=== PATIENT | female | born 1955 | race Caucasian/White ===

== ENCOUNTER → 2023-08-25 09:37 | Outpatient (REF) | payer OTHER, SELFPAY | LOC: RAD 09:37 | PROVIDERS: ATTENDING PHYSICIAN Physician Assistant; FAMILY PHYSICIAN Nurse Practitioner Adult Health | DX: Z78.0 Asymptomatic menopausal state (principal); E11.9 Type 2 diabetes mellitus without complications | CPT/HCPCS: 77080 ==

== ENCOUNTER → 2024-02-07 11:27 | Outpatient (REF) | payer OTHER, SELFPAY | LOC: WDC 11:27 | PROVIDERS: ATTENDING PHYSICIAN Nurse Practitioner Adult Health | DX: Z12.31 Encounter for screening mammogram for malignant neoplasm of breast (principal) | CPT/HCPCS: 77063; 77067 ==

== ENCOUNTER → 2024-02-11 10:30 | Outpatient (REF) | payer OTHER, SELFPAY | LOC: RAD 10:30 | PROVIDERS: ATTENDING PHYSICIAN Nurse Practitioner Adult Health | DX: M25.511 Pain in right shoulder (principal) | CPT/HCPCS: 73030 ==

== ENCOUNTER 2024-07-02 13:40 | Emergency (ER) | payer OTHER, SELFPAY ==
[2024-07-02 13:42] VITALS: BP 168/94
--- NOTE | 2024-07-02 14:30 | ED.GENMED ---
History of Present Illness
General
Chief Complaint: Musculo-Skeletal Complaint
Source: patient
Exam Limitations: none
Time Seen by Provider: 07/02/24 14:20
Nursing documentation reviewed up to this point in time: agreed with
History of Present Illness
History of Present Illness:
69-year-old female with a past medical history of hypertension, hyperlipidemia, GERD presents emergency department today with right lower extremity cramping and pain starting last night. Patient notes pain is worse with ambulation. She has
associated intermittent cramping. She denies any fevers or chills. She denies any shortness of breath or chest pain. She denies any upper back pain. Patient does take aspirin but does not take blood thinners. Patient is never had symptoms like
this before. She has no associated symptoms in the other leg. She has no lower extremity erythema or rashes. She has no swelling. She recent falls or injuries. She denies any recent long distance travel other than to [place], denies any history
of cancer, denies any recent surgeries.
Past History
Past History
ED Past Medical History: Other (Hypertension, depression)
Social History
Tobacco: Non-smoker
Alcohol: None
Drug: None
Family History
Family History: Other (Coronary disease, diabetes, hypertension, depression)
Review of Systems
Review of Systems
All Other Systems: ROS reviewed and negative except as documented in HPI and ROS
Phy Exam
Physical Exam
Physical Exam:
General: Patient is well appearing and in no acute distress; non-toxic
Skin: Warm and dry, no rashes or lesions
Head: Normocephalic, atraumatic
Eyes: Sclera non-icteric. EOMs intact.
Cardiac: Regular rate and rhythm, no murmurs
Peripheral Vascular: 2+ dorsalis pedis and posterior tibial pulses bilaterally
Pulm: Normal respiratory effort, no wheezes or rales, rhonchi
Musculoskeletal: Positive Michel's sign on the left, no palpable bony deformities of the lower extremity.
Neuro: CN II-XII intact, no focal neurologic deficits.
Psychiatric: Appropriate mood and affect.
Course
Orders/Labs/Results
Orders:
Orders
07/02/24 13:50
Venous Doppler Lwr Ext Left [US Periph Venous LOWER Ext LT] Urgent
Comment:
Reason For Exam: pain and swelling
07/02/24 15:33
Complete Blood Count/With Diff Urgent
Comprehensive Metabolic Panel Urgent
Abnormal Lab Results
07/02/24
15:33
RBC 4.10 L 10^6/uL
(4.20-5.40)
MCH 31.2 H pg
(27.0-31.0)
Absolute Monos (auto) 0.7 H 10^3/uL
(0.1-0.6)
Lymphocytes % 15.0 L %
(20.5-51.1)
BUN 25 H mg/dl
(7-17)
07/02/24 15:33
07/02/24 15:33
Vital Signs
Initial and Last Documented VS:
Initial Vital Signs
Temp Pulse Resp BP Pulse Ox
99.0 F 107 20 168/94 98
07/02/24 13:42 07/02/24 13:42 07/02/24 13:42 07/02/24 13:42 07/02/24 13:42
Last Documented Vital Signs
Temp Pulse Resp BP Pulse Ox
99.0 F 90 18 144/80 98
07/02/24 13:42 07/02/24 15:44 07/02/24 15:44 07/02/24 15:44 07/02/24 15:44
MDM/Problems Addressed
Differential Diagnosis Includes:
Differentials include superficial phlebitis, dvt, musculoskeletal sprain/strain, electrolyte derangement
MDM/Problems Addressed:
69-year-old with a history of hypertension, hyperlipidemia takes baby aspirin presents lower extremity pain cramping started last night. Patient notes that the pain is worse with ambulation have tenderness in the calf. She has no DVT risk factors.
She has not take a blood thinner. Will send for ultrasound to rule DVT. Will reassess.
On reassessment, patient does note persistent pain. Do not feel it is necessary to x-ray at this time considering patient had no trauma to the leg and has no bony tenderness. Patient did mention to me that she has a history of restless leg syndrome
in that leg and patient notes that she also has had increasing symptoms at night. Patient already does take a prescription medication for restless leg. In light of patient's calf tenderness and intermittent cramping, we will trial Flexeril. I
discussed return precautions and reasons to follow-up with patient's primary care provider. Patient stable for discharge
Chronic conditions affecting care:
HTN, HLP
*Pulse Oximetry
Patient hypoxic: no
*Critical Care Note
Total Time (30-74mins, 75-104mins- exclusive of procedures): Not Applicable
Data Reviewed
Review of Other/Old Records Reveals: Records (Reviewed ER physician documentation from 05/13/2022, patient seen for acute postoperative abdominal pain and discharged) and Discharge Summary (Reviewed discharge summary from 04/07/2022 patient seen for
cholecystectomy)
Source: patient and records
Patient Management
Escalation/DeEscalation of care consider admission/obs:
Patient stable for discharged, case reviewed with my attending
ED Attending Note
-
Portions of this chart may have been created with voice recognition software.� Occasional wrong word or��sound alike� substitutions may have occurred due to the inherent limitations of voice recognition software.
Discharge Plan
Departure
Patient Disposition: Home (Routine Discharge)
Date of Disposition: 07/02/24
Time of Disposition: 17:00
Patient with high blood pressure during this ER visit?: Yes
Condition: Good
Discharge Problem:
Pain of left calf
Instructions: Sprain (DC), BLOOD PRESSURE
Prescriptions:
New
cyclobenzaprine 10 mg tablet
10 mg PO DAILY Qty: 10 0RF
No Action
aspirin 81 MG tablet,chewable
81 mg PO QPM
escitalopram oxalate 20 MG tablet
20 mg PO QPM
Allergy Nasal [place]
2 spray inhalation DAILY
ropinirole 0.25 mg Tablet
1 mg PO QPM
lisinopril 30 mg Tablet
40 mg PO QPM
hydrochlorothiazide 25 mg Tablet
25 mg PO QPM
rosuvastatin 5 mg Tablet
5 mg PO QPM
cholecalciferol (vitamin D3) [Vitamin D3] 50 mcg (2,000 unit) Tablet
2,000 unit PO QPM
Calcium + D 1,200 MG
1,200 mg PO QPM
levofloxacin 750 mg tablet
750 mg PO DAILY 7 Days Qty: 7 0RF
metronidazole 500 mg tablet
500 mg PO TID Qty: 21 0RF
Referrals:
UNKNOWN - PT DOES,NOT KNOW [Unknown Provider] -
Activity Restrictions/Additional Instructions:
Flexeril has been sent to your pharmacy. I recommend taking 1 tablet before bed. You can take 1 tablet once daily. Please follow-up with your primary care provider should your symptoms persist.
PLEASE RETURN TO THE ER SHOULD YOU EXPERIENCE THE INABILITY TO AMBULATE, FALLS, SHORTNESS OF BREATH, LOSS OF SENSATION IN LEFT LEG, PALLOR, SWELLING, REDNESS, CHEST PAIN, OR ANY OTHER SIGNS OR SYMPTOMS WORRISOME TO YOU.
Interventions
Interventions:
*Risk Screen - Suicide Last Done: 07/02/24 13:42
*General Assessment Last Done: 07/02/24 15:45
*Neglect/Abuse Screening Last Done: 07/02/24 15:45
ED- Fall Risk Assessment Last Done: 07/02/24 15:45
*ED COVID-19 Vaccine History Last Done: 07/02/24 15:45
*Nursing Disposition Last Done: 07/02/24 17:24
ED-Musculoskeletal Assessment Last Done: 07/02/24 15:45
Discharge Date and Time
Discharge Date/Time: 07/02/24 17:24
Print Language: DANISH
[2024-07-02 15:40] LABS: % Basophils 0.4 % (0-2); % Eosinophils 2.3 % (0-6); % Immature Granulocytes 0.5 % (0-0.5); % Monocytes 7.8 % (1.7-9.3); Absolute Eosinophils 0.2 10^3/uL (0-0.7); Absolute Lymphocytes 1.3 10^3/uL (1.2-3.4); Absolute Monocytes 0.7 10^3/uL (0.1-0.6); Absolute Neutrophils 6.2 10^3/uL (1.4-6.5); Hematocrit 38.1 % (37.0-47.0); Hemoglobin 12.8 g/dL (12.0-16.0); Mean Corp Hgb Conc. 33.6 g/dL (33.0-37.0); Mean Corpuscular Hgb 31.2 pg (27.0-31.0); Mean Corpuscular Volume 92.9 fL (81.0-99.0); Mean Platelet Volume 10.4 fL (7.4-10.4); Nucleated Red Blood Cells % 0 %; Platelet Count 185 10^3/uL (130-400); White Blood Cell Count 8.4 10^3/uL (4.8-10.8)
[2024-07-02 15:44] VITALS: BP 144/80
[2024-07-02 15:56] LABS: ALT (SGPT) 18 U/L (0-35); AST (SGOT) 22 U/L (14-36); Albumin 4.1 g/dl (3.5-5.0); Alkaline Phosphatase 121 U/L (38-126); Blood Urea Nitrogen 25 mg/dl (7-17); Calcium 9.1 mg/dl (8.4-10.2); Carbon Dioxide 30 mmol/L (22-30); Chloride 104 mmol/L (98-107); Glucose 99 mg/dl (70-99); Sodium 142 mmol/L (135-145); Total Bilirubin 0.4 mg/dl (0.2-1.3); Total Protein 6.3 g/dl (6.3-8.2); eGFR > 60.00
== END 2024-07-02 17:24 | disposition home or self-care (01) ==
LOC: EMR 13:40
PROVIDERS: Physician Assistant; EMERGENCY PHYSICIAN Emergency Medicine; FAMILY PHYSICIAN Nurse Practitioner Adult Health
DX: M79.662 Pain in left lower leg (principal); I10 Essential (primary) hypertension; E78.5 Hyperlipidemia, unspecified; Z79.82 Long term (current) use of aspirin; K21.9 Gastro-esophageal reflux disease without esophagitis
CPT/HCPCS: 99284; 80053; 85025; 93971

== ENCOUNTER → 2024-07-06 09:00 | Outpatient (REF) | payer OTHER, SELFPAY | LOC: RAD 09:00 | PROVIDERS: ATTENDING PHYSICIAN Nurse Practitioner Adult Health | DX: M54.32 Sciatica, left side (principal) | CPT/HCPCS: 72110 ==

== ENCOUNTER → 2024-07-26 10:27 | Outpatient (REF) | payer OTHER, SELFPAY | LOC: HWRAD 10:27 | PROVIDERS: ATTENDING PHYSICIAN Nurse Practitioner Adult Health | DX: J22 Unspecified acute lower respiratory infection (principal) | CPT/HCPCS: 71046 ==

== ENCOUNTER → 2024-08-16 10:38 | Outpatient (REF) | payer OTHER, SELFPAY | LOC: MRI 3T 10:38 | PROVIDERS: ATTENDING PHYSICIAN Nurse Practitioner Adult Health | DX: M54.16 Radiculopathy, lumbar region (principal); V89.2XXA Person injured in unspecified motor-vehicle accident, traffic, initial encounter; R29.818 Other symptoms and signs involving the nervous system; R29.2 Abnormal reflex | CPT/HCPCS: 72148 ==

== ENCOUNTER → 2024-12-06 17:50 | Outpatient (REF) | payer OTHER, SELFPAY | LOC: RAD 17:50 | PROVIDERS: ATTENDING PHYSICIAN Student in an Organized Health Care Education/Training Program; FAMILY PHYSICIAN Nurse Practitioner Adult Health | DX: G89.29 Other chronic pain (principal); M25.50 Pain in unspecified joint; M25.60 Stiffness of unspecified joint, not elsewhere classified | CPT/HCPCS: 73120 ==

== ENCOUNTER → 2025-01-12 14:11 | Outpatient (REF) | payer OTHER, SELFPAY | LOC: RAD 14:11 | PROVIDERS: FAMILY PHYSICIAN Nurse Practitioner Adult Health | DX: M25.562 Pain in left knee (principal) | CPT/HCPCS: 73564 ==

== ENCOUNTER → 2025-02-13 11:24 | Outpatient (REF) | payer OTHER, SELFPAY | LOC: RAD 11:24 | PROVIDERS: ATTENDING PHYSICIAN Internal Medicine Gastroenterology; FAMILY PHYSICIAN Nurse Practitioner Adult Health | DX: K76.0 Fatty (change of) liver, not elsewhere classified (principal) | CPT/HCPCS: 76700 ==

== ENCOUNTER → 2025-03-07 13:22 | Outpatient (REF) | payer OTHER, SELFPAY | LOC: RAD 13:22 | PROVIDERS: ATTENDING PHYSICIAN Internal Medicine; FAMILY PHYSICIAN Nurse Practitioner Adult Health | DX: M54.16 Radiculopathy, lumbar region (principal); M47.20 Other spondylosis with radiculopathy, site unspecified; M54.15 Radiculopathy, thoracolumbar region; S33.5XXA Sprain of ligaments of lumbar spine, initial encounter | CPT/HCPCS: 73630 ==

== ENCOUNTER → 2025-03-21 13:19 | Outpatient (REF) | payer OTHER, SELFPAY | LOC: WDC 13:19 | PROVIDERS: ATTENDING PHYSICIAN Nurse Practitioner Adult Health | DX: Z12.31 Encounter for screening mammogram for malignant neoplasm of breast (principal) | CPT/HCPCS: 77063; 77067 ==

== ENCOUNTER 2025-04-03 06:24 | Day surgery (SDC) | payer OTHER, SELFPAY | END 2025-04-03 10:33 | disposition home or self-care (01) | LOC: GI 06:24 | PROVIDERS: ATTENDING PHYSICIAN Internal Medicine Gastroenterology; FAMILY PHYSICIAN Nurse Practitioner Adult Health | DX: K22.2 Esophageal obstruction (principal); K22.89 Other specified disease of esophagus; K44.9 Diaphragmatic hernia without obstruction or gangrene; K31.7 Polyp of stomach and duodenum; R12 Heartburn | CPT/HCPCS: 43239; 88305 ==

== ENCOUNTER → 2025-05-08 10:24 | Outpatient (REF) | payer OTHER, SELFPAY | LOC: RAD 10:24 | PROVIDERS: ATTENDING PHYSICIAN Nurse Practitioner Adult Health | DX: R35.0 Frequency of micturition (principal); N39.0 Urinary tract infection, site not specified | CPT/HCPCS: 76770 ==